=== PATIENT | male | born 1960 | race African-American/Black ===

== ENCOUNTER 2016-06-14 02:15 | Emergency (ER) | payer OTHER ==
[~2016-06-14 02:15] MED LIST: FENOFIBRATE160 MG PO; OLMESARTAN-HCT1 EAC2 PO
== END 2016-06-14 03:10 | disposition home or self-care (01) ==
LOC: SED 02:15
DX: M25.511 Pain in right shoulder (principal); I10 Essential (primary) hypertension; E78.5 Hyperlipidemia, unspecified
CPT/HCPCS: 99282; 99283